=== PATIENT | male | born 1940 | race Caucasian/White ===

== ENCOUNTER 2018-08-03 21:36 | Inpatient (IN) ==
--- NOTE | 2018-08-03 22:05 | Emergency Department Note ---
Disposition Clinical Impression: Acute exacerbation of chronic obstructive airways disease Disposition: Admitted As Inpatient Condition: Undetermined Time of Disposition: 22:52 General Adult HPI - General Chief complaint: ED Shortness of Breath/Dyspnea Stated complaint: chest pain Time Seen by Provider: 08/03/18 21:38 Source: patient, EMS Mode of arrival: EMS Limitations: no limitations Nursing Notes Reviewed: Yes Vital Signs Reviewed: Yes - History of Present Illness HPI Narrative: 78-year-old male with history of COPD on 2 L nasal cannula at night arrives to the emergency department increased work of breathing over the course the past few days, increasing O2 requirement. He is noted to be hypoxic in the low 80s per EMS. They gave the patient 1 DuoNeb and brought patient in for evaluation. The patient is continued to experience worsening difficulty breathing. He denies any associated chest pain but does admit to some soreness of his chest wall and abdominal wall. He denies any fevers, chills but does admit to a mild productive cough. No nausea, vomiting, diarrhea. No other complaints at this time. He is in mild respiratory distress. Pain Scale: 0 - Related Data Home Medications Medication Instructions Recorded Confirmed Ascorbate Calcium [Vitamin C] 500 mg PO DAILY 01/29/16 08/04/18 Cholecalciferol (D-3) [Vitamin D] 1,000 unit PO DAILY 01/29/16 08/04/18 Esomeprazole Magnesium [Nexium] 40 mg PO DAILY 01/29/16 08/04/18 Fluticasone/Salmeterol [Advair 1 puff IH BID 01/29/16 08/04/18 500-50 Diskus] Levalbuterol [Xopenex INH] 2 puff IH Q6H PRN 01/29/16 08/04/18 Multivitamin [Multi-Day Vitamins] 1 tab PO DAILY 01/29/16 08/04/18 Oxycodone HCl/Acetaminophen 1 tab PO Q6H PRN 01/29/16 08/04/18 [Percocet 7.5-325 mg Tablet] Oxygen 2 l NS HS 01/29/16 08/04/18 Simvastatin [Zocor] 40 mg PO HS 01/29/16 08/04/18 Tizanidine HCl [Zanaflex] 4 mg PO TID PRN 07/01/16 01/05/19 Guaifenesin [Mucinex] 600 mg PO BID PRN 05/11/17 08/04/18 Umeclidinium [place] [Incruse 62.5 mcg IH DAILY 05/11/17 08/04/18 Ellipta] Allergies Allergy/AdvReac Type Severity Reaction Status Date / Time No Known Allergies Allergy Verified 09/20/17 08:37 All systems ED: reviewed and negative except as stated. Constitutional: Reports: weakness. Denies: fever, chills ENT ED: Denies: dysphagia Cardiovascular: Reports: dyspnea on exertion. Denies: chest pain Respiratory: Reports: cough, dyspnea, wheezes, sputum production. Denies: hemoptysis Gastrointestinal: Denies: abdominal pain, nausea, vomiting Genitourinary: Denies: urgency, dysuria Musculoskeletal: Denies: back pain Integumentary: Denies: rash Neurological: Denies: headache Past Medical History - Past Medical History Attestation: Yes The following information was validated with the patient. Source: patient, old records reviewed Medical history: Reports: arthritis, COPD, coronary artery disease, DVT, GERD, GI bleed, hyperlipidemia, syncope, venous stasis, other Surgical history: Reports: pacemaker/AICD Psychiatric history: Reports: no psych history - Social History Smoking Status: Former smoker Smokeless Tobacco Status: No Alcohol use: Reports: none Drug use: Reports: none Physical Exam - General Limitations: no limitations General appearance: alert, in distress (mild respiratory) - Head Head exam: atraumatic, normocephalic, normal inspection - Eye Eye exam: Present: normal appearance, PERRL, EOMI - ENT ENT exam: normal exam, normal oropharynx, mucous membranes moist - Neck Neck exam: Present: normal inspection, full ROM, trachea midline - Chest Chest inspection: Present: normal inspection, symmetric chest wall rise - Respiratory Respiratory exam: Present: respiratory distress (mild), wheezes (diffuse, mild) - Cardiovascular Cardiovascular exam: Present: regular rate, normal rhythm, normal heart sounds - Abdominal Exam Abdominal exam: Present: soft, Non-Tender. Absent: tenderness, distention, guarding, rebound, rigidity - Extremities Exam Extremities exam: Present: normal inspection, full ROM. Absent: tenderness, pedal edema - Neurological Exam Neurological exam: Present: alert, oriented X3 - Skin Skin exam: Present: warm, dry, intact, normal color Course Vital Signs Temperature 97.4 F L 01/04/19 21:43 Pulse Rate 79 08/03/18 21:43 Respiratory Rate 24 08/03/18 21:43 Blood Pressure 140/85 08/03/18 21:43 O2 Sat by Pulse Oximetry 98 08/03/18 21:43 Temperature 97.4 F L 08/03/18 21:43 Pulse Rate 79 08/03/18 21:43 Respiratory Rate 24 08/03/18 21:43 Blood Pressure 140/85 08/03/18 21:43 O2 Sat by Pulse Oximetry 98 08/03/18 21:50 Oxygen Delivery Oxygen Delivery Nasal Cannula Medical Decision Making - MDM Narrative Medical decision making narrative: Patient's workup in the emergency department demonstrates findings consistent with COPD exacerbation. The patient received DuoNeb's and prednisone. Patient will be admitted to the hospital this time given the patient was hypoxic down to 83%. No further questions or concerns noted at this time. Accepted by Dr. Snowden. - Lab Data Lab results reviewed: Yes I reviewed the patient's lab results. Result diagrams: 08/03/18 21:57 08/03/18 21:57 Lab Results 08/03/18 08/03/18 08/03/18 Range/Units 21:57 21:57 21:57 WBC 5.0 (4.3-11.1) K/mcL RBC 4.24 (4.19-5.50) M/mcL Hgb 13.3 (12.9-16.9) g/dL Hct 39.9 (37.5-50.1) % MCV 94.1 (83.0-100.0) fL MCH 31.4 (28.0-33.3) pg MCHC 33.3 (31.6-35.5) g/dL RDW 13.2 (11.5-14.5) % Plt Count 202 (140-400) K/mcL MPV 10.1 (9.4-12.4) fL Immature Gran % 0.4 (0-4) % Seg Neutrophils % 63.1 % Lymphocytes % 25.2 % Monocytes % 8.9 % Eosinophils % 1.4 % Basophils % 1.0 % Neutrophils # 3.1 (1.6-8.9) K/mcL Lymphocytes # 1.3 (0.6-4.6) K/mcL Monocytes # 0.4 (0.0-1.3) K/mcL Eosinophils # 0.1 (0.0-0.6) K/mcL Basophils # 0.1 (0.0-0.2) K/mcL PT 11.8 (9.4-12.1) Seconds INR 1.0 APTT 34.1 (26.0-36.0) Seconds Sodium 141 (136-145) mEq/L Potassium 3.8 (3.5-5.1) mEq/L Chloride 109 H (98-107) mEq/L Carbon Dioxide 25 (23-29) mEq/L BUN 16 (8-23) mg/dL Creatinine 0.88 (0.70-1.30) mg/dL Est GFR ( Amer) > 60 (> 60) Est GFR (Non-Af Amer) > 60 (> 60) BUN/Creatinine Ratio 18 (6-26) Glucose 158 H (70-105) mg/dL Calculated Osmolality 296 (280-300) Calcium 8.9 (8.6-10.3) mg/dL Troponin I < 0.03 (< 0.04) ng/mL - Radiology Data Radiology results reviewed: Yes I reviewed the patient's radiology results. Chest X-Ray 08/03/18 21:39 IMPRESSION: No acute abnormality detected. D/ / Patrick Zambrano MD / Patrick Zambrano MD Interpreting Provider: Patrick Zambrano MD - EKG Data EKG #1 EKG attestation: Yes I reviewed and interpreted this EKG. EKG results narrative: Heart rate 70 bpm. Normal sinus rhythm. No ST elevation or ST depression noted. EKG similar in appearance to EKG from 05/25/2017. No acute changes noted. Attestation Statement - Attestation Attestation: I, Dion Vaca, examined this patient and my medical decision-making was reviewed with the REAL ESTATE ATTORNEY/PA/Advanced Practice Nurse/Resident Physician. I agree with the documented findings, disposition and treatment plan as described except to the extent set forth below. 78-year-old male presents emergency Department with concerns of difficulty in breathing chest pain. Patient states that pain is across from his chest, he sa id difficulty breathing increasing over the past couple days similar to his previous COPD exacerbations. Patient has wheezing on bilateral lung solis on examination. He is given breathing treatments and steroids emergency department he will be admitted to the hospitalist for further care and evaluation to rule out ACS and to treat likely COPD exacerbation.
[2018-08-03 22:09] LABS: Basophils # 0.1 K/mcL (0.0-0.2); Eosinophils # 0.1 K/mcL (0.0-0.6); Eosinophils % 1.4 %; Hematocrit 39.9 % (37.5-50.1); Hemoglobin 13.3 g/dL (12.9-16.9); Immature Granulocytes % 0.4 % (0-4); Lymphocytes # 1.3 K/mcL (0.6-4.6); Lymphocytes % 25.2 %; Mean Corpuscular HGB Conc 33.3 g/dL (31.6-35.5); Mean Corpuscular Hemoglobin 31.4 pg (28.0-33.3); Mean Corpuscular Volume 94.1 fL (83.0-100.0); Mean Platelet Volume 10.1 fL (9.4-12.4); Monocytes # 0.4 K/mcL (0.0-1.3); Monocytes % 8.9 %; Neutrophils # 3.1 K/mcL (1.6-8.9); Platelet Count 202 K/mcL (140-400); Red Blood Count 4.24 M/mcL (4.19-5.50); Red Cell Distribution Width 13.2 % (11.5-14.5); Segmented Neutrophils % 63.1 %
[2018-08-03 22:16] LABS: Prothrombin Time 11.8 Seconds (9.4-12.1)
[2018-08-03 22:19] LABS: Activated Partial Thrombo Time 34.1 Seconds (26.0-36.0)
[2018-08-03] MEDS ORDERED: predniSONE 20 MG TABLET PO ONE (22:22)
[2018-08-03] MEDS ORDERED: Ipratropium/Albuterol Neb 3 ML IH ONE (22:22)
[2018-08-03 22:29] LABS: BUN/Creatinine Ratio 18 (6-26); Blood Urea Nitrogen 16 mg/dL (8-23); Calcium 8.9 mg/dL (8.6-10.3); Carbon Dioxide 25 mEq/L (23-29); Chloride 109 mEq/L (98-107); Glucose 158 mg/dL (70-105); Osmolality,Calculated 296 (280-300); Potassium 3.8 mEq/L (3.5-5.1); Sodium 141 mEq/L (136-145); eGFR For Non-African Americans > 60 (> 60)
[2018-08-03 22:30] LABS: Troponin I < 0.03 ng/mL (< 0.04)
[2018-08-03] MEDS ORDERED: NON-FORMULARY MEDICATION 1 EACH EACH (Oxygen [Oxygen] 2 L) NS SCH (23:30)
--- NOTE | 2018-08-04 00:55 | Internal Med History&Physical ---
Date of Encounter: 08/04/18 Time of Encounter: 00:52 Internal Medicine - H&P: HPI Chief complaint: SOB Admitted From: Home Plans for Post Hospital Care: Home History of present illness: Slava Perea is a 78 year old man with severe COPD on 2 L home oxygen at nighttime presents to the emergency room complaining of increasing shortness of breath over the past week. He says that since Monday and has been progressively getting worse and that he can hardly catch his breath anymore, as well as being poorly responsive to his home nebulizer therapy. He also says he has now needed to use his oxygen all day long rather than just at night. He reports some cough with scant sputum production and denies fever and chills. In the ER he was noted to be in moderate respiratory distress and was given 60mg prednisone and a nebulizer therapy. He tells me that he took 1 tablet of levofloxacin before he came in. He is admitted for further observation. Past Med Surg Social Fam HX - Past Medical History Medical history: arthritis, COPD, coronary artery disease, DVT, GERD, GI bleed, hyperlipidemia, syncope, venous stasis, other Additional medical history: erosive esophagitis, hiatal hernia, gastritis, bph,. CHRONIC BACK PAIN Psychiatric history: no psych history - Past Surgical History Surgical History: pacemaker/AICD Additional surgical history: prostate bx, colonoscopy, egd, ctr - Social History Smoking Status: Former smoker Smokeless Tobacco Status: No Alcohol use: none Drug use: none - Family History Father Adopted: No Family Member Ethnicity: Non- Twin of Family Member: Yes, Fraternal Living Status: Hx Family Cardiac Disorders: No Hx Family Respiratory Disorders: No Hx Family Cancer: No Hx Family GI Disorders: No Hx Family Endocrine Disorder: No Hx Family Neuromuscular Disorders: No Hx Family Neurologic Disorders: No Hx Family HEENT Disorders: No Hx Family Autoimmune Disorders: No Internal Medicine - H&P: Meds RX: Ascorbate Calcium [Vitamin C] 500 mg PO DAILY 01/29/16 [History] RX: Cholecalciferol (D-3) [Vitamin D] 1,000 unit PO DAILY 01/29/16 [History] RX: Esomeprazole Magnesium [Nexium] 40 mg PO DAILY 01/29/16 [History] RX: Fluticasone/Salmeterol [Advair 500-50 Diskus] 1 puff IH BID 01/29/16 [History] RX: Levalbuterol [Xopenex INH] 2 puff IH Q6H PRN 01/29/16 [History] RX: Multivitamin [Multi-Day Vitamins] 1 tab PO DAILY 01/29/16 [History] RX: Oxycodone HCl/Acetaminophen [Percocet 7.5-325 mg Tablet] 1 tab PO Q6H PRN 01/29/16 [History] RX: Oxygen 2 l NS HS 01/29/16 [History] RX: Simvastatin [Zocor] 40 mg PO HS 01/29/16 [History] RX: Tizanidine HCl [Zanaflex] 4 mg PO TID PRN 01/29/16 [History] RX: Guaifenesin [Mucinex] 600 mg PO BID PRN 05/11/17 [History] RX: Umeclidinium [place] [Incruse [place]] 62.5 mcg IH DAILY 05/11/17 [History] Allergy/AdvReac Type Severity Reaction Status Date / Time No Known Allergies Allergy Verified 09/20/17 08:37 All Systems PM: A 10-system review of systems was performed and is negative for pertinent findings except as documented above in the HPI. - Constitutional Vitals: Temp Pulse Resp BP Pulse Ox 97.4 F L 75 24 120/92 98 08/03/18 21:43 08/04/18 00:43 08/04/18 00:43 08/04/18 00:43 08/04/18 00:43 Exam: Vitals: Reviewed General: Well developed malesitting up in bed in notable respiratory discomfort, shortened sentences. Skin: Flushed face. HEENT: Moist mucous membranes. No conjunctivae pallor. Neck: No lymphadenopathy. No JVD. No carotid bruits. No palpable thyroid. Chest: Reduced thoracic expansion. Diffuse expiratory wheezes in both lung f ields. Pacemaker on left upper chest wall. Heart: Normal S1 & S2; rhythmic. No rubs or murmurs. Abdomen: Non-distended, soft and non-tender to palpation. No peritoneal reaction. Extremities: (+) clubbing, cyanosis. No edema. No calf tenderness. Normal distal pulses. Neurological: Awake, alert and oriented to person, place and time. No focal deficits. Psych: Affect appropriate. Internal Med - H&P Results - Labs CBC & Chem 7: 08/03/18 21:57 08/03/18 21:57 Labs: Short CBC 08/03/18 Range/Units 21:57 WBC 5.0 (4.3-11.1) K/mcL Hgb 13.3 (12.9-16.9) g/dL Hct 39.9 (37.5-50.1) % Plt Count 202 (140-400) K/mcL Neutrophils # 3.1 (1.6-8.9) K/mcL BMP 08/03/18 21:57 Sodium 141 Potassium 3.8 Chloride 109 H Carbon Dioxide 25 BUN 16 Creatinine 0.88 Glucose 158 H Calcium 8.9 Cardiac Enzymes 08/03/18 Range/Units 21:57 Troponin I < 0.03 (< 0.04) ng/mL - Impressions ITS Impressions Chest X-Ray 08/03/18 21:39 IMPRESSION: No acute abnormality detected. D/ / Patrick Zambrano MD / Patrick Zambrano MD Interpreting Provider: Patrick Zambrano MD - Assessment and plan (1) Acute exacerbation of chronic obstructive airways disease Current Visit: Yes Status: Acute Assessment and plan: Moderate to severe. Will require close respiratory watch and continuous oximetry . Mental status intact and not concerning for hypercarbia but if he does not improve will get an ABG. Q4hr nebulizer therapy, IV steroids and place on levofloxacin 500mg daily. (2) Pacemaker Current Visit: Yes Status: Acute Assessment and plan: The patient does not specify why he has it. There is listing of syncope in the past. Has an irregular rhythm on telemetry. Will continue to monitor. (3) DVT prophylaxis Current Visit: Yes Status: Acute Assessment and plan: SubQ heparin. - Time Spent With Patient Total time spent is greater than 50% in coordination of care (as documented) at patient's floor/unit and/or counseling patient: Greater than 35 minutes
[2018-08-04] MEDS: *HR* OxyCODONE/APAP 7.5/325 TABLET PO PRN ×3 (01:35→17:29)
[2018-08-04] MEDS: Ipratropium/Albuterol Neb 3 ML IH SCH ×7 (04:36→23:38)
[2018-08-04] MEDS: MethylPREDNISolone 40 MG/ML VIAL IVP SCH ×2 (04:51→17:23)
[2018-08-04] MEDS: *HR* Heparin 5,000 UNIT/ML VIAL SQ SCH ×2 (04:52→17:24)
[2018-08-04] MEDS ORDERED: Azithromycin 250 MG TABLET PO SCH (09:00)
[2018-08-04] MEDS ORDERED: predniSONE 20 MG TABLET PO SCH (09:00)
[2018-08-04] MEDS: Multivit/Ca/Min/Fe/FA 1 TAB TABLET PO SCH (09:17)
[2018-08-04] MEDS: Cholecalciferol (D-3) 1,000 UNIT TABLET PO SCH (09:17)
[2018-08-04] MEDS: Levofloxacin 500 MG/100 ML 500 MG/100 ML BAG IVPB SCH (12:49)
[2018-08-04] MEDS: Budesonide/Formoterol 160/4.5 1 PUFF INH IH SCH ×2 (13:33→20:19)
[2018-08-04] MEDS: Umeclidinium Bromide [Incruse Ellipta] 62.5 MCG) IH SCH (17:22)
[2018-08-04] MEDS: tiZANidine 4 MG TABLET PO PRN (20:42)
[2018-08-05] MEDS: *HR* OxyCODONE/APAP 7.5/325 TABLET PO PRN ×3 (00:27→18:30)
[2018-08-05] MEDS: Ipratropium/Albuterol Neb 3 ML IH SCH ×6 (03:36→23:44)
[2018-08-05] MEDS: *HR* Heparin 5,000 UNIT/ML VIAL SQ SCH ×2 (05:51→18:30)
[2018-08-05] MEDS: MethylPREDNISolone 40 MG/ML VIAL IVP SCH ×2 (05:51→18:30)
[2018-08-05 06:57] LABS: Basophils % 0.2 %; Hemoglobin 13.4 g/dL (12.9-16.9); Immature Granulocytes % 0.5 % (0-4); Lymphocytes # 1.1 K/mcL (0.6-4.6); Lymphocytes % 11.1 %; Mean Corpuscular HGB Conc 32.7 g/dL (31.6-35.5); Mean Corpuscular Hemoglobin 30.9 pg (28.0-33.3); Mean Corpuscular Volume 94.5 fL (83.0-100.0); Mean Platelet Volume 10.6 fL (9.4-12.4); Monocytes # 0.7 K/mcL (0.0-1.3); Monocytes % 7.3 %; Platelet Count 254 K/mcL (140-400); Red Blood Count 4.34 M/mcL (4.19-5.50); Segmented Neutrophils % 80.9 %
[2018-08-05 07:09] LABS: BUN/Creatinine Ratio 27 (6-26); Blood Urea Nitrogen 24 mg/dL (8-23); Calcium 9.6 mg/dL (8.6-10.3); Carbon Dioxide 23 mEq/L (23-29); Chloride 108 mEq/L (98-107); Glucose 143 mg/dL (70-105); Osmolality,Calculated 303 (280-300); Potassium 3.8 mEq/L (3.5-5.1); Sodium 143 mEq/L (136-145); eGFR For Non-African Americans > 60 (> 60)
[2018-08-05 07:14] LABS: Platelet Estimate Normal (Normal)
[2018-08-05] MEDS: Budesonide/Formoterol 160/4.5 1 PUFF INH IH SCH ×2 (07:25→19:38)
[2018-08-05] MEDS ORDERED: Albuterol 2.5 MG/3 ML NEBULIZER IH PRN (07:25)
[2018-08-05] MEDS: Cholecalciferol (D-3) 1,000 UNIT TABLET PO SCH (08:42)
[2018-08-05] MEDS: Multivit/Ca/Min/Fe/FA 1 TAB TABLET PO SCH (08:43)
[2018-08-05] MEDS: Ascorbic Acid 500 MG TABLET PO SCH (08:43)
[2018-08-05] MEDS: Levofloxacin 500 MG/100 ML 500 MG/100 ML BAG IVPB SCH (08:43)
[2018-08-05] MEDS: Umeclidinium Bromide [Incruse Ellipta] 62.5 MCG) IH SCH (08:44)
[2018-08-05] MEDS: tiZANidine 4 MG TABLET PO PRN (09:37)
--- NOTE | 2018-08-05 11:51 | Internal Med Progress Note ---
Hospitalist Progress Note - Encounter Date of Encounter: 08/05/18 Time of Encounter: 09:45 - Subjective Interval History: H&P reviewed. Patient with history of severe COPD on 2 L of oxygen at nighttime is admitted for COPD exacerbation. Patient was seen right after he had come back from bathroom for BM and was significantly short of breath. However, he states that he feels a little better at rest compared to yesterday. No fever/chills. - Exam Vitals: Temp Pulse Resp BP Pulse Ox 97.6 F 69 18 146/76 98 08/05/18 10:41 08/05/18 10:41 08/05/18 11:33 08/05/18 10:41 08/05/18 11:33 Exam: Vitals: Reviewed General: Moderate respiratory distress, speaks in fragments of sentences Chest: diminished breath sound, diffuse expiratory wheezes in both lung solis. Heart: Normal S1 & S2; regular rhythm and normal rate Abdomen: soft and non-tender - Assessment and Plan (1) Acute exacerbation of chronic obstructive airways disease Current Visit: Yes Status: Acute Assessment and Plan: Moderate to severe. Will require close respiratory watch and continuous oximetry. CXR -ve for PNA mentating well but significantly tachypneic (granted that he was seen just after exertion) Continue Q4hr nebulizer therapy, IV steroids and levofloxacin resume home inhalers PRN BiPaP Check RIP (2) GERD (gastroesophageal reflux disease) Current Visit: No Status: Chronic Assessment and Plan: resume home meds (3) DVT prophylaxis Current Visit: Yes Status: Acute Assessment and Plan: SQ heparin - Time Spent with Patient Total time spent is greater than 50% in coordination of care (as documented) at patient's floor/unit and/or counseling patient: Plan of Care Discussed with: patient (RN) Internal Medicine: Result - Labs CBC & Chem 7: 08/05/18 06:16 08/05/18 06:16 Labs: Short CBC 08/05/18 Range/Units 06:16 WBC 9.9 D (4.3-11.1) K/mcL Hgb 13.4 (12.9-16.9) g/dL Hct 41.0 (37.5-50.1) % Plt Count 254 (140-400) K/mcL Neutrophils # 8.0 (1.6-8.9) K/mcL BMP 08/05/18 06:16 Sodium 143 Potassium 3.8 Chloride 108 H Carbon Dioxide 23 BUN 24 H Creatinine 0.89 Glucose 143 H Calcium 9.6 - ABG Interpretation ABG results: PT/INR, D-dimer PT 11.8 Seconds (9.4-12.1) 08/03/18 21:57 Consult Discharge Plan - Plan Referrals: Zak Vinson MD [Primary Care Provider] - (2) GERD (gastroesophageal reflux disease) Qualifiers: Esophagitis presence: esophagitis presence not specified Qualified Code(s): K21.9 - Gastro-esophageal reflux disease without esophagitis
[2018-08-05 12:02] LABS: Adenovirus Not Detected (Not Detect); Bordetella Pertussis Not Detected (Not Detect); Chlamydophila pneumoniae Not Detected (Not Detect); Coronavirus 229E Not Detected (Not Detect); Coronavirus HKU1 Not Detected (Not Detect); Coronavirus NL63 Not Detected (Not Detect); Coronavirus OC43 Not Detected (Not Detect); Human Metapneumovirus Not Detected (Not Detect); Human Rhinovirus/Enterovirus Not Detected (Not Detect); Influenza A Subtype 2009 H1 Not Detected (Not Detect); Influenza A Untypeable Not Detected (Not Detect); Influenza B Not Detected (Not Detect); Mycoplasma pneumoniae Not Detected (Not Detect); Parainfluenza Virus 1 Not Detected (Not Detect); Parainfluenza Virus 2 Not Detected (Not Detect); Parainfluenza Virus 3 Not Detected (Not Detect); Parainfluenza Virus 4 Not Detected (Not Detect); Respiratory Syncytial Virus DETECTED (Not Detect)
[2018-08-06] MEDS: Ipratropium/Albuterol Neb 3 ML IH SCH ×6 (03:34→23:56)
[2018-08-06] MEDS: MethylPREDNISolone 40 MG/ML VIAL IVP SCH ×2 (05:51→17:39)
[2018-08-06] MEDS: *HR* Heparin 5,000 UNIT/ML VIAL SQ SCH ×2 (05:51→17:40)
[2018-08-06] MEDS: Budesonide/Formoterol 160/4.5 1 PUFF INH IH SCH ×2 (07:34→20:35)
[2018-08-06] MEDS: Cholecalciferol (D-3) 1,000 UNIT TABLET PO SCH (09:05)
[2018-08-06] MEDS: Multivit/Ca/Min/Fe/FA 1 TAB TABLET PO SCH (09:06)
[2018-08-06] MEDS: Levofloxacin 500 MG/100 ML 500 MG/100 ML BAG IVPB SCH (09:06)
[2018-08-06] MEDS: Ascorbic Acid 500 MG TABLET PO SCH (09:06)
[2018-08-06] MEDS: Umeclidinium Bromide [Incruse Ellipta] 62.5 MCG) IH SCH (09:07)
[2018-08-06] MEDS: *HR* OxyCODONE/APAP 7.5/325 TABLET PO PRN ×2 (10:32→21:16)
--- NOTE | 2018-08-06 10:42 | Internal Med Progress Note ---
Hospitalist Progress Note - Encounter Date of Encounter: 08/06/18 Time of Encounter: 09:00 - Subjective Interval History: SOB improved but continues to be significantly tachypneic with minimal exertion. Intolerant to BiPAP overnight. No fever/chills. - Exam Vitals: Temp Pulse Resp BP Pulse Ox 97.6 F 69 17 133/77 97 08/06/18 09:12 08/06/18 09:12 08/06/18 09:12 08/06/18 09:12 08/06/18 09:12 Exam: Vitals: Reviewed General: Mild respiratory distress, speaks in fragments of sentences Chest: diminished breath sound, improving expiratory wheezes in both lung solis. Heart: Normal S1 & S2; regular rhythm and normal rate Abdomen: soft and non-tender - Assessment and Plan (1) Acute exacerbation of chronic obstructive airways disease Current Visit: Yes Status: Acute Assessment and Plan: Moderate to severe. Will require close respiratory watch and continuous oximetry. RSV +ve, CXR -ve for PNA was tried on BiPaP yesterday in view of tachypnea, unable to tolerate and RR improved from yesterday Continue Q4hr nebulizer therapy, IV steroids and levofloxacin resume home inhalers PT/OT (2) GERD (gastroesophageal reflux disease) Current Visit: No Status: Chronic Assessment and Plan: resume home meds (3) DVT prophylaxis Current Visit: Yes Status: Acute Assessment and Plan: SQ heparin - Time Spent with Patient Total time spent is greater than 50% in coordination of care (as documented) at patient's floor/unit and/or counseling patient: Plan of Care Discussed with: patient Internal Medicine: Result - Labs CBC & Chem 7: 08/05/18 06:16 08/05/18 06:16 - ABG Interpretation ABG results: PT/INR, D-dimer PT 11.8 Seconds (9.4-12.1) 08/03/18 21:57 Consult Discharge Plan - Plan Referrals: Zak Vinson MD [Primary Care Provider] - (2) GERD (gastroesophageal reflux disease) Qualifiers: Esophagitis presence: esophagitis presence not specified Qualified Code(s): K21.9 - Gastro-esophageal reflux disease without esophagitis
--- NOTE | 2018-08-06 14:38 | Electrocardiograph Report ---
[place] [id number] Test Date: 2018-08-03 Pat Name: Slava Perea Department: EXAM8 Room: 2S8 Gender: M [employer] D[employer]: : 1940 Requested By: Dion Vaca Order Number: [id number] Reading MD: Fam Villa Measurements Intervals Elizabeth Rate: 78 P: 80 CT: 155 QRS: 82 QRSD: 97 T: 73 QT: 361 QTc: 412 Interpretive Statements Sinus rhythm Cannout rule out septal infarct, age indeterminate Electronically Signed On 08-06-2018 14:36:57 EST by Fam Villa
[2018-08-06] MEDS: Bisacodyl 10 MG RECTAL SUPPOSITORY RC ONE ×2 (20:57→21:18)
[2018-08-06] MEDS: tiZANidine 4 MG TABLET PO PRN (21:16)
[2018-08-07] MEDS: Ipratropium/Albuterol Neb 3 ML IH SCH ×6 (04:25→23:43)
[2018-08-07] MEDS: *HR* Heparin 5,000 UNIT/ML VIAL SQ SCH ×2 (05:03→18:20)
[2018-08-07] MEDS: MethylPREDNISolone 40 MG/ML VIAL IVP SCH ×2 (05:03→18:20)
[2018-08-07] MEDS: *HR* OxyCODONE/APAP 7.5/325 TABLET PO PRN ×3 (05:11→22:33)
[2018-08-07 05:55] LABS: Basophils # 0.1 K/mcL (0.0-0.2); Basophils % 0.5 %; Hematocrit 37.2 % (37.5-50.1); Hemoglobin 12.5 g/dL (12.9-16.9); Immature Granulocytes % 3.4 % (0-4); Lymphocytes # 1.2 K/mcL (0.6-4.6); Mean Corpuscular HGB Conc 33.6 g/dL (31.6-35.5); Mean Corpuscular Hemoglobin 31.6 pg (28.0-33.3); Mean Corpuscular Volume 93.9 fL (83.0-100.0); Mean Platelet Volume 10.8 fL (9.4-12.4); Monocytes # 0.6 K/mcL (0.0-1.3); Monocytes % 5.8 %; Neutrophils # 8.1 K/mcL (1.6-8.9); Platelet Count 254 K/mcL (140-400); Red Blood Count 3.96 M/mcL (4.19-5.50); Red Cell Distribution Width 13.2 % (11.5-14.5); Segmented Neutrophils % 78.3 %
[2018-08-07 06:20] LABS: BUN/Creatinine Ratio 26 (6-26); Blood Urea Nitrogen 20 mg/dL (8-23); Calcium 9.2 mg/dL (8.6-10.3); Carbon Dioxide 29 mEq/L (23-29); Chloride 105 mEq/L (98-107); Glucose 134 mg/dL (70-105); Osmolality,Calculated 299 (280-300); Sodium 142 mEq/L (136-145); eGFR For Non-African Americans > 60 (> 60)
[2018-08-07] MEDS: Budesonide/Formoterol 160/4.5 1 PUFF INH IH SCH ×2 (07:36→20:03)
[2018-08-07] MEDS: Ascorbic Acid 500 MG TABLET PO SCH (09:35)
[2018-08-07] MEDS: Multivit/Ca/Min/Fe/FA 1 TAB TABLET PO SCH (09:35)
[2018-08-07] MEDS: levoFLOXacin 500 MG TABLET PO SCH (09:35)
[2018-08-07] MEDS: Cholecalciferol (D-3) 1,000 UNIT TABLET PO SCH (09:36)
[2018-08-07] MEDS: Umeclidinium Bromide [Incruse Ellipta] 62.5 MCG) IH SCH (09:40)
--- NOTE | 2018-08-07 15:02 | Internal Med Progress Note ---
Hospitalist Progress Note - Encounter Date of Encounter: 08/07/18 Time of Encounter: 09:00 - Subjective Interval History: patient was seen and examiend at bedside. has no complaints, tolerating PO diet. pain is controlled. no overnight events denies fever, chills, N/V/D, chest pain, palpitations SOB has improved minimally - Exam Vitals: Temp Pulse Resp BP Pulse Ox 98.3 F 64 18 154/90 94 08/07/18 10:06 08/07/18 10:06 08/07/18 11:49 08/07/18 10:06 08/07/18 11:49 Exam: Vitals: Reviewed General: Mild respiratory distress, speaks in full 5 word sentences Chest: diminished breath sound, improving expiratory wheezes in both lung [place]. Heart: RRR, S1 and s2 Abdomen: soft and non-tender, BS +ve Neuro: Axox3, no focal deficit - Assessment and Plan (1) Acute exacerbation of chronic obstructive airways disease Current Visit: Yes Status: Acute Assessment and Plan: Moderate to severe. Will require close respiratory watch and continuous oximetry . RSV +ve, CXR -ve for PNA RR has improved Continue Q4hr nebulizer therapy, IV steroids as he is still have some wheezing will transition him to oral steroids continue Levaquin PT/OT- pending (2) GERD (gastroesophageal reflux disease) Current Visit: No Status: Chronic Assessment and Plan: resume home meds (3) DVT prophylaxis Current Visit: Yes Status: Acute Assessment and Plan: SQ heparin - Time Spent with Patient Total time spent is greater than 50% in coordination of care (as documented) at patient's floor/unit and/or counseling patient: Internal Medicine: Result - Labs CBC & Chem 7: 08/07/18 04:56 08/07/18 04:56 Labs: Short CBC 08/07/18 Range/Units 04:56 WBC 10.3 (4.3-11.1) K/mcL Hgb 12.5 L (12.9-16.9) g/dL Hct 37.2 L (37.5-50.1) % Plt Count 254 (140-400) K/mcL Neutrophils # 8.1 (1.6-8.9) K/mcL BMP 08/07/18 04:56 Sodium 142 Potassium 4.0 Chloride 105 Carbon Dioxide 29 BUN 20 Creatinine 0.77 Glucose 134 H Calcium 9.2 - ABG Interpretation ABG results: PT/INR, D-dimer PT 11.8 Seconds (9.4-12.1) 08/03/18 21:57 Consult Discharge Plan - Plan Referrals: Zak Vinson MD [Primary Care Provider] - (2) GERD (gastroesophageal reflux disease) Qualifiers: Esophagitis presence: esophagitis presence not specified Qualified Code(s): K21.9 - Gastro-esophageal reflux disease without esophagitis
[2018-08-08] MEDS: Ipratropium/Albuterol Neb 3 ML IH SCH ×6 (03:48→23:27)
[2018-08-08] MEDS: *HR* Heparin 5,000 UNIT/ML VIAL SQ SCH ×2 (03:53→18:11)
[2018-08-08] MEDS: MethylPREDNISolone 40 MG/ML VIAL IVP SCH ×2 (03:55→18:11)
[2018-08-08] MEDS: Budesonide/Formoterol 160/4.5 1 PUFF INH IH SCH ×2 (07:16→19:59)
[2018-08-08] MEDS: *HR* OxyCODONE/APAP 7.5/325 TABLET PO PRN ×2 (09:52→18:11)
[2018-08-08] MEDS: Multivit/Ca/Min/Fe/FA 1 TAB TABLET PO SCH (09:52)
[2018-08-08] MEDS: levoFLOXacin 500 MG TABLET PO SCH (09:52)
[2018-08-08] MEDS: Ascorbic Acid 500 MG TABLET PO SCH (09:52)
--- NOTE | 2018-08-08 09:52 | Pulmonology Consult Note ---
Date of Encounter: 08/08/18 Time of Encounter: 09:49 Assessment and Plan (1) Acute respiratory failure with hypoxia Current Visit: Yes Status: Acute In conclusion this is a 78-year-old gentleman with a past medical history of severe COPD and tobacco abuse in remission he presented with acute respiratory failure secondary to COPD exacerbation from RSV bronchiolitis. Clinically appears to be improving although slowly. This is not an uncommon occurrence for individuals who developed RSV infections as this is a notoriously severe infection for individuals with advanced airways disease. See my recommendations below Recs: - He currently is not requiring supplemental oxygen when laying/sitting but I suspect with ambulation is oxygen saturation will will continue to drop it is very likely that he would need to have subpleural ox and with exertion at the time of discharge which we can reevaluate in clinic after discharge -No clear indication for Levaquin and in this age group with a combination of steroids there can be some significant complications I recommend transitioning to azithromycin to complete a 5 day course for the macrolide to anti- inflammatory properties. I have a low suspicion for concomitant bacterial pneumonia complicating initial viral infection -Symbicort 160/4.52 puffs twice a day -Transition to by mouth prednisone 40 mg to complete a two-week taper tomorrow but stick with IV glucocorticoids today -Outpatient pulmonary follow-up in 1-2 weeks of the time of discharge -Management of GERD per primary medicine service -He will need DVT prophylaxis while inpatient Thank you for this consultation pulmonary will sign off please call with any questions (2) RSV bronchiolitis Current Visit: Yes Status: Acute (3) Acute exacerbation of chronic obstructive airways disease Current Visit: Yes Status: Acute (4) DVT prophylaxis Current Visit: Yes Status: Acute (5) GERD (gastroesophageal reflux disease) Current Visit: No Status: Chronic Qualifiers: Esophagitis presence: esophagitis presence not specified Qualified Code(s): K21.9 - Gastro-esophageal reflux disease without esophagitis History of Present Illness Consult date: 08/08/18 Requesting physician: Kiana Lorenzana Reason for consult: COPD Chief complaint: Difficulty in Breathing History of present illness: This is a pleasant 78-year-old woman with past medical history of advanced COPD last FEV1 in 2017 was 44% predicted postbronchodilator. He does significant tobacco abuse history of 60 pack years quitting in 2017. He presented with difficulty breathing in the 2 days leading up to admission to the hospital along with increasing oxygen requirements. He is currently prescribed 2 L oxygen at night and but was needing to wear oxygen continuously prior to admission. He called EMS and was found to be hypoxic in the low 80s on arrival. In the ED a Chest x-ray was performed which was unremarkable for pneumonia was treated as COPD exacerbation respiratory infection panel was performed positive for RSV his been admitted to the hospital now for 4 days receiving scheduled bronchodilators and IV steroids without significant improvement pulmonary was consulted for further evaluation. He is currently requiring 2 L supplemental oxygen Saturation in the low 90s. Today with the patient lying in the room off supplemental oxygen his saturation is 95%. He states that his breathing is still "rough" and he has markedly dyspnea with ambulation. He has a cough which is generally nonproductive. He has been treated with bronchodilator steroids and antibiotics thus far. Tobacco abuse remains in remission prior to admission. Of note the patient is severely hard of hearing and I had to shout for most of the questions and examination during my visit Past Med Surg Social Fam HX - Past Medical History Medical history: arthritis, COPD, coronary artery disease, DVT, GERD, GI bleed, hyperlipidemia, syncope, venous stasis, other Additional medical history: erosive esophagitis, hiatal hernia, gastritis, bph,. CHRONIC BACK PAIN Psychiatric history: no psych history - Past Surgical History Surgical History: pacemaker/AICD Additional surgical history: prostate bx, colonoscopy, egd, ctr - Social History Smoking Status: Former smoker Smokeless Tobacco Status: No Alcohol use: none Drug use: none - Family History Father Adopted: No Family Member Ethnicity: Non- Twin of Family Member: Yes, Fraternal Living Status: Hx Family Cardiac Disorders: No Hx Family Respiratory Disorders: No Hx Family Cancer: No Hx Family GI Disorders: No Hx Family Endocrine Disorder: No Hx Family Neuromuscular Disorders: No Hx Family Neurologic Disorders: No Hx Family HEENT Disorders: No Hx Family Autoimmune Disorders: No Medications and Allergies Ascorbate Calcium [Vitamin C] 500 mg PO DAILY 01/29/16 [History] Cholecalciferol (D-3) [Vitamin D] 1,000 unit PO DAILY 01/29/16 [History] Esomeprazole Magnesium [Nexium] 40 mg PO DAILY 01/29/16 [History] Fluticasone/Salmeterol [Advair 500-50 Diskus] 1 puff IH BID 01/29/16 [History] Levalbuterol [Xopenex INH] 2 puff IH Q6H PRN 01/29/16 [History] Multivitamin [Multi-Day Vitamins] 1 tab PO DAILY 01/29/16 [History] Oxycodone HCl/Acetaminophen [Percocet 7.5-325 mg Tablet] 1 tab PO Q6H PRN 01/29/16 [History] Oxygen 2 l NS HS 01/29/16 [History] Simvastatin [Zocor] 40 mg PO HS 01/29/16 [History] Tizanidine HCl [Zanaflex] 4 mg PO TID PRN 01/29/16 [History] Guaifenesin [Mucinex] 600 mg PO BID PRN 05/11/17 [History] Umeclidinium [place] [Incruse Ellipta] 62.5 mcg IH DAILY 05/11/17 [History] Albuterol Neb [Proventil Neb] 2.5 mg IH QID PRN 08/04/18 [History] Allergy/AdvReac Type Severity Reaction Status Date / Time No Known Allergies Allergy Verified 09/20/17 08:37 All Systems: The remainder of the systems were reviewed and are negative Physical Examination Vital Signs: Vital Signs, Last 4 Hours Temp Pulse Resp BP Pulse Ox 08/08/18 09:11 97.9 F 71 18 156/81 94 08/08/18 07:23 14 96 General appearance: no acute distress Eyes: nonicteric ENT: oropharynx moist Neck: no JVD Effort: mildly labored Auscultation: bilateral: wheezes (Generally poor air movement with the pronounced expiratory wheeze) Cardiovascular: regular rate and rhythm Gastrointestinal: normoactive bowel sounds, soft, non-tender Integumentary: normal Extremities: no cyanosis, no edema, no clubbing Musculoskeletal: no deformities normal mental status, non-focal exam, pupils equal and round mood appropriate Results - Laboratory Findings CBC and BMP: 08/07/18 04:56 08/07/18 04:56 PT/INR, D-dimer PT 11.8 Seconds (9.4-12.1) 08/03/18 21:57 Abnormal lab findings: Abnormal lab results RBC 3.96 M/mcL (4.19-5.50) L 08/07/18 04:56 Hgb 12.5 g/dL (12.9-16.9) L 08/07/18 04:56 Hct 37.2 % (37.5-50.1) L 08/07/18 04:56 Glucose 134 mg/dL (70-105) H 08/07/18 04:56 RSV (PCR) DETECTED (Not Detect) A 08/05/18 10:39 - Diagnostic Findings Chest x-ray: report reviewed, image reviewed Consult Discharge Plan - Plan Referrals: Zak Vinson MD [Primary Care Provider] -
[2018-08-08] MEDS: Umeclidinium Bromide [Incruse Ellipta] 62.5 MCG) IH SCH (09:53)
[2018-08-08] MEDS: Cholecalciferol (D-3) 1,000 UNIT TABLET PO SCH (09:53)
[2018-08-08] MEDS: Azithromycin 250 MG TABLET PO SCH (12:27)
[2018-08-08] MEDS: tiZANidine 4 MG TABLET PO PRN ×2 (12:27→21:31)
--- NOTE | 2018-08-08 14:49 | Internal Med Progress Note ---
Hospitalist Progress Note - Encounter Date of Encounter: 08/08/18 Time of Encounter: 08:30 - Subjective Interval History: patient was seen and examined at bedside. complaining of constipation, tolerating PO diet. pain is controlled. no overnight events denies fever, chills, N/V/D, chest pain, palpitations SOB has improved - Exam Vitals: Temp Pulse Resp BP Pulse Ox 97.9 F 72 20 155/79 93 08/08/18 12:51 08/08/18 12:51 08/08/18 12:51 08/08/18 12:51 08/08/18 12:51 Exam: Vitals: Reviewed General: not in distress, speaks in full 5 word sentences Chest: diminished breath sound, improving expiratory wheezes in both lung [place]. Heart: RRR, S1 and s2 Abdomen: soft and non-tender, BS +ve MSK: moving all extremities, no edema Neuro: Axox3, no focal deficit - Assessment and Plan (1) Acute exacerbation of chronic obstructive airways disease Current Visit: Yes Status: Acute Assessment and Plan: Moderate to severe. Will require close respiratory watch and continuous oximetry. RSV +ve, CXR -ve for PNA RR has improved Continue Q4hr nebulizer therapy, IV steroids as he is still have some wheezing will transition him to oral steroids in the AM levaquin changed to azithromycin Symbicort pulm recs appreciated PT/OT- pending (2) GERD (gastroesophageal reflux disease) Current Visit: No Status: Chronic Assessment and Plan: resume home meds (3) DVT prophylaxis Current Visit: Yes Status: Acute Assessment and Plan: SQ heparin - Time Spent with Patient Total time spent is greater than 50% in coordination of care (as documented) at patient's floor/unit and/or counseling patient: Internal Medicine: Result - Labs CBC & Chem 7: 08/07/18 04:56 08/07/18 04:56 - ABG Interpretation ABG results: PT/INR, D-dimer PT 11.8 Seconds (9.4-12.1) 08/03/18 21:57 Consult Discharge Plan - Plan Referrals: Zak Vinson MD [Primary Care Provider] - (2) GERD (gastroesophageal reflux disease) Qualifiers: Esophagitis presence: esophagitis presence not specified Qualified Code(s): K21.9 - Gastro-esophageal reflux disease without esophagitis
[2018-08-08] MEDS: Sennosides 8.6 MG TABLET PO SCH (16:29)
[2018-08-09] MEDS: *HR* OxyCODONE/APAP 7.5/325 TABLET PO PRN ×4 (01:44→22:24)
[2018-08-09] MEDS: Ipratropium/Albuterol Neb 3 ML IH SCH ×7 (03:53→23:20)
[2018-08-09] MEDS: MethylPREDNISolone 40 MG/ML VIAL IVP SCH ×2 (06:23→17:15)
[2018-08-09] MEDS: *HR* Heparin 5,000 UNIT/ML VIAL SQ SCH ×2 (06:23→17:15)
[2018-08-09] MEDS: Budesonide/Formoterol 160/4.5 1 PUFF INH IH SCH ×2 (07:39→20:20)
[2018-08-09] MEDS: Sennosides 8.6 MG TABLET PO SCH (09:45)
[2018-08-09] MEDS: Multivit/Ca/Min/Fe/FA 1 TAB TABLET PO SCH (09:45)
[2018-08-09] MEDS: tiZANidine 4 MG TABLET PO PRN (09:45)
[2018-08-09] MEDS: Ascorbic Acid 500 MG TABLET PO SCH (09:45)
[2018-08-09] MEDS: Cholecalciferol (D-3) 1,000 UNIT TABLET PO SCH (09:48)
--- NOTE | 2018-08-09 11:38 | Discharge Summary ---
- NOTES TO OUTPATIENT PROVIDER Notes to Outpatient Provider: Outpatient pulmonary follow-up in 1-2 weeks of the time of discharge Date of Encounter: 08/09/18 Time of Encounter: 11:27 - Discharge Diagnosis (1) Acute exacerbation of chronic obstructive airways disease Priority: Primary Status: Acute (2) GERD (gastroesophageal reflux disease) Priority: Secondary Status: Chronic Qualifiers: Esophagitis presence: esophagitis presence not specified Qualified Code(s): K21.9 - Gastro-esophageal reflux disease without esophagitis (3) DVT prophylaxis Priority: Secondary Status: Acute (4) RSV bronchiolitis Priority: Secondary Status: Acute Hospital course: "Slava Perea is a 78 year old man with severe COPD on 2 L home oxygen at nighttime presents to the emergency room complaining of increasing shortness of breath over the past week. He says that since Monday and has been progressively getting worse and that he can hardly catch his breath anymore, as well as being poorly responsive to his home nebulizer therapy. He also says he has now needed to use his oxygen all day long rather than just at night. He reports some cough with scant sputum production and denies fever and chills. In the ER he was noted to be in moderate respiratory distress and was given 60mg prednisone and a nebulizer therapy. He tells me that he took 1 tablet of levofloxacin before he came in. He is admitted for further observation." patient presented with above presentation. respiratory vital panel was positive for RSV. his respiratory status continued to improve with IV steroids pulmonology consulted and recs appreciated. he was provided abx prescription to finish 5 day course. he was provided with by mouth steroids to continue a taper of 14 days. he is to follow up with pulmonology as OP in 1 week. nursing staff aware to provide patient with Appointment. 6 min walk test performed and prescription for O2 was provided. Pt/OT recommended home PT. Sw and CM on board CXR: IMPRESSION: No acute abnormality detected. Discharge discussed with: patient, nurse, publicity consultant - Time Spent with Patient Total time spent providing and/or coordinating discharge services: Greater than 30 minutes - Discharge Medications Prescriptions: Azithromycin [Zithromax] 250 mg PO Q24H 3 Days #3 tablet Docusate [Colace] 100 mg PO BID #60 capsule Polyethylene Glycol 3350 [MiraLAX] 17 gm PO DAILY #30 powd.pack predniSONE [PredniSONE] 10 mg PO DAILY 14 Days #36 tablet Home Medications: Ascorbate Calcium [Vitamin C] 500 mg PO DAILY 01/29/16 [History] Cholecalciferol (D-3) [Vitamin D] 1,000 unit PO DAILY 01/29/16 [History] Esomeprazole Magnesium [Nexium] 40 mg PO DAILY 01/29/16 [History] Fluticasone/Salmeterol [Advair 500-50 Diskus] 1 puff IH BID 01/29/16 [History] Levalbuterol [Xopenex INH] 2 puff IH Q6H PRN 01/29/16 [History] Multivitamin [Multi-Day Vitamins] 1 tab PO DAILY 01/29/16 [History] Oxycodone HCl/Acetaminophen [Percocet 7.5-325 mg Tablet] 1 tab PO Q6H PRN 01/29/16 [History] Oxygen 2 l NS HS 01/29/16 [History] Simvastatin [Zocor] 40 mg PO HS 01/29/16 [History] Tizanidine HCl [Zanaflex] 4 mg PO TID PRN 01/29/16 [History] Guaifenesin [Mucinex] 600 mg PO BID PRN 05/11/17 [History] Umeclidinium [place] [Incruse Ellipta] 62.5 mcg IH DAILY 05/11/17 [History] Albuterol Neb [Proventil Neb] 2.5 mg IH QID PRN 08/04/18 [History] Azithromycin [Zithromax] 250 mg PO Q24H 3 Days #3 tablet 08/09/18 [Rx] Docusate [Colace] 100 mg PO BID #60 capsule 08/09/18 [Rx] Polyethylene Glycol 3350 [MiraLAX] 17 gm PO DAILY #30 powd.pack 08/09/18 [Rx] predniSONE [PredniSONE] 10 mg PO DAILY 14 Days #36 tablet 08/09/18 [Rx] Allergies/Adverse Reactions: Allergy/AdvReac Type Severity Reaction Status Date / Time No Known Allergies Allergy Verified 09/20/17 08:37 Date of admission: 08/05/18 19:40 Primary care physician: Zak Vinson MD Consults: 08/06/18 10:42 Consult to Physical Therapy [CONS] Routine Comment: Evaluate, develop and implement POC Reason for Consult: COPD Exacerbation, deconditioning Does patient have active BEDREST order?: No Is patient medically & hemodynamically stable?: Yes 08/08/18 09:48 Consult to Pulmonology [CONS] Routine Consulting Provider: [facility] [place] Reason for Consult: h/o severe COPD now with exacerbation with RSV infection Call Completed: Yes - Constitutional Vitals: Temp Pulse Resp BP Pulse Ox 98.3 F 68 16 139/85 95 08/09/18 08:12 08/09/18 08:12 08/09/18 08:12 08/09/18 08:12 08/09/18 08:12 Exam: Vitals: Reviewed General: not in distress, speaks in full 5 word sentences Chest: diminished breath sound, ioccasional wheezing in the anterior chest Heart: RRR, S1 and s2 Abdomen: soft and non-tender, BS +ve MSK: moving all extremities, no edema Neuro: Axox3, no focal deficit - Patient Status Disposition: Home, Self-Care Condition: Undetermined - Discharge Instructions Follow Up With: Zak Vinson MD [Primary Care Provider] -
[2018-08-09] MEDS: Azithromycin 250 MG TABLET PO SCH (13:28)
--- NOTE | 2018-08-09 13:42 | Physician Discharge Referral ---
Home Health/Hosp Referral Info Transfer to: Home Health Provider in Charge Post Discharge: PCP - Diagnosis (1) Acute exacerbation of chronic obstructive airways disease Priority: Primary Status: Acute (2) GERD (gastroesophageal reflux disease) Priority: Secondary Status: Chronic (3) DVT prophylaxis Priority: Secondary Status: Acute (4) RSV bronchiolitis Priority: Secondary Status: Acute - Respiratory Orders Oxygen / L per min (2) Smoking Cessation: Smoking cessation has been advised. For more information, call the [place] Tobacco Quit Line at 4-693-GZII-NOW. - Services Needed Following services are medically necessary services: Nursing, Home Health Aide, Physical Therapy - Transfer Medications Prescriptions: Azithromycin [Zithromax] 250 mg PO Q24H 3 Days #3 tablet Docusate [Colace] 100 mg PO BID #60 capsule Polyethylene Glycol 3350 [MiraLAX] 17 gm PO DAILY #30 powd.pack predniSONE [PredniSONE] 10 mg PO DAILY 14 Days #36 tablet Home Medications: Ascorbate Calcium [Vitamin C] 500 mg PO DAILY 01/29/16 [History] Cholecalciferol (D-3) [Vitamin D] 1,000 unit PO DAILY 01/29/16 [History] Esomeprazole Magnesium [Nexium] 40 mg PO DAILY 01/29/16 [History] Fluticasone/Salmeterol [Advair 500-50 Diskus] 1 puff IH BID 01/29/16 [History] Levalbuterol [Xopenex INH] 2 puff IH Q6H PRN 01/29/16 [History] Multivitamin [Multi-Day Vitamins] 1 tab PO DAILY 01/29/16 [History] Oxycodone HCl/Acetaminophen [Percocet 7.5-325 mg Tablet] 1 tab PO Q6H PRN 01/29/16 [History] Oxygen 2 l NS HS 01/29/16 [History] Simvastatin [Zocor] 40 mg PO HS 01/29/16 [History] Tizanidine HCl [Zanaflex] 4 mg PO TID PRN 01/29/16 [History] Guaifenesin [Mucinex] 600 mg PO BID PRN 05/11/17 [History] Umeclidinium [place] [Incruse Ellipta] 62.5 mcg IH DAILY 05/11/17 [History] Albuterol Neb [Proventil Neb] 2.5 mg IH QID PRN 08/04/18 [History] Azithromycin [Zithromax] 250 mg PO Q24H 3 Days #3 tablet 08/09/18 [Rx] Docusate [Colace] 100 mg PO BID #60 capsule 08/09/18 [Rx] Polyethylene Glycol 3350 [MiraLAX] 17 gm PO DAILY #30 powd.pack 08/09/18 [Rx] predniSONE [PredniSONE] 10 mg PO DAILY 14 Days #36 tablet 08/09/18 [Rx] Allergies/Adverse Reactions: Allergy/AdvReac Type Severity Reaction Status Date / Time No Known Allergies Allergy Verified 09/20/17 08:37 Certification: Further, I certify that my clinical findings support that this patient is homebound (i.e. absences from home require considerable and taxing effort and are for medical reasons or episcopal services or infrequently or short duration when for other reasons) because: Homebound Reason: Patient requires assistance of a person or device to safely leave home Attestation: My signature below is to certify that this patient is under my care and that I, or nurse practitioner, or a physician's lens assistant working with me, has a [id number] encounter with this patient.
[2018-08-10 01:18] LABS: BUN/Creatinine Ratio 31 (6-26); Blood Urea Nitrogen 30 mg/dL (8-23); Calcium 9.3 mg/dL (8.6-10.3); Carbon Dioxide 26 mEq/L (23-29); Chloride 102 mEq/L (98-107); Glucose 165 mg/dL (70-105); Magnesium 2.3 mg/dL (1.6-2.6); Osmolality,Calculated 296 (280-300); Potassium 4.4 mEq/L (3.5-5.1); Sodium 138 mEq/L (136-145); eGFR For Non-African Americans > 60 (> 60)
[2018-08-10 01:19] LABS: Troponin I < 0.03 ng/mL (< 0.04)
[2018-08-10] MEDS: Ipratropium/Albuterol Neb 3 ML IH SCH ×3 (04:03→11:13)
[2018-08-10] MEDS: *HR* Heparin 5,000 UNIT/ML VIAL SQ SCH (05:39)
[2018-08-10] MEDS: MethylPREDNISolone 40 MG/ML VIAL IVP SCH (05:39)
[2018-08-10] MEDS: *HR* OxyCODONE/APAP 7.5/325 TABLET PO PRN (07:52)
[2018-08-10] MEDS: Cholecalciferol (D-3) 1,000 UNIT TABLET PO SCH (07:52)
[2018-08-10] MEDS: Ascorbic Acid 500 MG TABLET PO SCH (07:52)
[2018-08-10] MEDS: Budesonide/Formoterol 160/4.5 1 PUFF INH IH SCH (08:06)
[2018-08-10] MEDS ORDERED: Isovue-370 500 ML INFUS..BTL IV ONE (08:49)
[2018-08-10] MEDS: Multivit/Ca/Min/Fe/FA 1 TAB TABLET PO SCH (09:25)
[2018-08-10] MEDS: Sennosides 8.6 MG TABLET PO SCH (09:25)
[2018-08-10 11:31] VITALS: BP 138/66
--- NOTE | 2018-08-10 11:55 | Event Note ---
Date of Encounter: 08/10/18 Time of Encounter: 11:48 jack was seen and examiend at bedside. discharge was held secondary to SOB on ambulation to the bathroom in the room. this morning he is feeling much better. I discussed that RSV causes bronchospasms and it will take time for his respiratory status to improve. he is in agreement. I discussed the case with SW and nursing staff who also walked him for 6 min walk test and saturations remained stable on 2L NC VSS Vitals: Reviewed General: not in distress, speaks in full sentences Chest: diminished breath sound, occasional wheezing in the anterior chest Heart: RRR, S1 and s2 Abdomen: soft and non-tender, BS +ve MSK: moving all extremities, no edema Neuro: Axox3, no focal deficit CTPA: IMPRESSION: 1. No evidence of pulmonary embolism. 2. Findings consistent with mild emphysema and chronic bronchitis, with a small amount of mucus plugging in the lower lobes. 3. Coronary atherosclerosis. A/P (1) Acute exacerbation of chronic obstructive airways disease (2) GERD (gastroesophageal reflux disease) (3) DVT prophylaxis (4) RSV bronchiolitis CTPA - negative for PE patient completed 6 minute walk test with out desaturation. SW on board for home services and home O2 Rx provided pulmonology recs appreciated steroid and Abx RX provided to follow up with Pulm in 1 week nursing aware to obtain appointment
[2018-08-10] MEDS: Azithromycin 250 MG TABLET PO SCH (12:27)
== END 2018-08-10 13:45 | disposition home or self-care (01) | DRG 190 ==
LOC: 2SOUTHHOLD 21:36 → EMEROOARM 21:36 → SUATTDRO 08-04 00:37 → 2SOUTHHOLD 08-04 01:04 → SUATTDRO 08-05 19:40
PROVIDERS: ADMIT Internal Medicine; ATTEND Internal Medicine